=== PATIENT | female | born 1955 | race Two or more races ===

== ENCOUNTER 2024-04-15 20:54 | Emergency (ER) | payer SELFPAY ==
[2024-04-15 20:56] VITALS: BMI 34.9
[2024-04-15 22:07] VITALS: BP 154/74; PULSE 73; RESP 16; TEMP 36.9; O2SAT 95
--- NOTE | 2024-04-15 22:13 | XR_ITS ---
Examination: Wrist, left 3 views Technique: Wrist AP, oblique, lateral 3 views Date and time of exam: April 15, 2024 1021 hrs. Indications: Patient fell today with injury to the wrist, wrist pain. Findings: No acute fracture No dislocation No foreign body Impression: No acute fracture
--- NOTE | 2024-04-15 22:13 | XR_ITS ---
Examination: Left elbow 3 views Technique: Elbow AP, oblique, lateral 3 views Exam date and time: April 15, 2024 1021 hrs. Indications: Patient fell today with injury to the elbow, elbow pain. Findings: No acute fracture No dislocation No foreign body Impression: No acute fracture.
--- NOTE | 2024-04-15 22:13 | XR_ITS ---
Examination: Knee, left , 3 views Technique: Knee AP, lateral, oblique 3 views Date and time of exam: April 15, 2024 1021 hrs. Indications: Patient fell today with injury to the knee, knee pain. Findings: No acute fracture No dislocation Multiple soft tissue surgical clips Impression: No acute fracture
--- NOTE | 2024-04-15 22:21 | PD.EDFALL ---
ED Fall Injury RME/HPI General Chief Complaint: Fall Stated Complaint: WORKS COMP, FALL LT SIDE ELBOW,KNEE AND WRIST PAIN Time Seen by Provider: 04/15/24 21:21 Arrival date/time: 04/15/24 20:54 RME / HPI RME / HPI Narrative: 68-year-old female presents to the ED with complaint of left knee pain, as well as left wrist and elbow pain after fall that occurred while at work. Patient states that she tripped over some oxygen tubing, causing her to fall on her left side. Denies hitting her head. No LOC. Denies neck pain. Related Data Allergies Allergy/AdvReac Type Severity Reaction Status Date / Time No Known Allergies Allergy Verified 04/15/24 20:58 Review of Systems Review of Systems Systems Reviewed: All systems reviewed, normal except as documented ED Exam Narrative Physical exam: Constitutional: no acute distress, age appropriate, non-toxic Eyes: conjunctivae w/o pallor, EOMI HENT: normocephalic, atraumatic. Respiratory Effort: no stridor, effort normal, no tachypnea MSK: Right knee with mild tenderness to palpation and some joint effusion. Range of motion intact. Ambulatory and able to bear weight. Skin: warm, dry; No rash Neurology: alert, oriented X 4. Normal gait Psychology: cooperative, normal mood Course Quality Measures none Orders Category Date Time Status XR elbow comp LT min 3V Stat Exams 04/15/24 22:13 Completed XR knee comp LT 4V Stat Exams 04/15/24 22:13 Completed XR wrist comp LT min 3V Stat Exams 04/15/24 22:13 Completed Vital Signs Vital signs: Vital Signs Temperature 98.4 F 04/15/24 22:07 Pulse Rate 73 04/15/24 22:07 Respiratory Rate 16 04/15/24 22:07 Blood Pressure 154/74 H 04/15/24 22:07 Pulse Oximetry (%) 95 04/15/24 22:07 Oxygen Delivery Method Room Air 04/15/24 22:07 Fall Patient data External records reviewed:: [facility] previous records Clinical information provided by:: patient Social determinants that could affect healthcare access:: none Patient has the following chronic illnesses:: None How is presenting disease/condition affected by chronic disease/condition?: no chronic disease Evaluation data The following diagnostics were reviewed and interpreted by me:: radiology exam(s) Lab and/or radiology exams considered but not ordered:: none Interpretation Summary: Examination: Left elbow 3 views Technique: Elbow AP, oblique, lateral 3 views Exam date and time: April 15, 2024 1021 hrs. Indications: Patient fell today with injury to the elbow, elbow pain. Findings: No acute fracture No dislocation No foreign body Impression: No acute fracture. Examination: Knee, left , 3 views Technique: Knee AP, lateral, oblique 3 views Date and time of exam: April 15, 2024 1021 hrs. Indications: Patient fell today with injury to the knee, knee pain. Findings: No acute fracture No dislocation Multiple soft tissue surgical clips Impression: No acute fracture Examination: Wrist, left 3 views Technique: Wrist AP, oblique, lateral 3 views Date and time of exam: April 15, 2024 1021 hrs. Indications: Patient fell today with injury to the wrist, wrist pain. Findings: No acute fracture No dislocation No foreign body Impression: No acute fracture Medications / Prescriptions Medications or Prescriptions considered but not ordered:: N/A Medication administrations:: N/A Consultations Consultation(s) initiated? (list below): No Diagnosis Fall Differential Diagnosis: other (Knee sprain, knee fracture, contusion, wrist fracture, elbow fracture) Most likely diagnosis given after review of the tests above:: Knee contusion Admission Indicated Admission indicated?: not indicated Admission Request Was there a request for admission?: No Disposition Plan Disposition Plan: Discharge Discharge Attestation Discharge Attestation: The patient and all family members were given an opportunity to ask questions and understood the discharge instructions. Discharge instructions specifically effects, indications for sooner follow up or return to the emergency department, and the expected course of current diagnosis. Patient condition: Stable Discharge Plan Plan Patient Disposition: HOME (Self Care) Prescriptions/Referrals Referrals: Cj Bundy [Primary Care Provider] - In 1 week Problem List Clinical Impression: Contusion of knee Patient/Caregiver Discharge Instructions Education Materials: ED Contusion, Lower Extremity Additional Instructions: Your x-rays were all normal. Follow-up with Worker's [facility]. clinic or with your PCP. Take OTC ibuprofen as needed for pain. Return to the ED for new or worsening symptoms. Print Language: Italian Stand Alone Forms: Kerrie Award Info., Patient Portal Info Letter
[2024-04-15 23:27] VITALS: BP 140/72; PULSE 70; RESP 18; TEMP 36.7; O2SAT 98
== END 2024-04-15 23:27 | disposition home or self-care (01) ==
PROVIDERS: Emergency Provider Emergency Medicine; PCP Internal Medicine
DX: S80.02XA Contusion of left knee, initial encounter (principal); W01.0XXA Fall on same level from slipping, tripping and stumbling without subsequent striking against object, initial encounter; Y99.0 Civilian activity done for income or pay; M25.532 Pain in left wrist; M25.522 Pain in left elbow
CPT/HCPCS: 73080; 73110; 73564; 99283